=== PATIENT | male | born 1950 | race Caucasian/White ===

== ENCOUNTER 2017-07-09 16:54 | Observation (INO) ==
[2017-07-09] MEDS ORDERED: 0.9 % Sodium Chloride 1,000 ML IVC ONE (16:58)
[2017-07-09] MEDS ORDERED: 0.9 % Sodium Chloride 1,000 ML IVC SCH (17:00)
--- NOTE | 2017-07-09 17:01 | Emergency Department Note ---
Disposition Clinical Impression: Sepsis syndrome Hypotension Qualifiers: Hypotension type: other hypotension type Qualified Code(s): I95.89 - Other hypotension Leukocytosis Qualifiers: Leukocytosis type: other Qualified Code(s): D72.828 - Other elevated white blood cell count Disposition: Admitted As Inpatient Condition: Fair Referrals: Delonte Goodman DO [Primary Care Provider] - Forms: ED Satisfaction Letter Syncope HPI - General Chief Complaint: ED Dizziness Stated Complaint: low BP / vision changes Time Seen by Provider: 07/09/17 16:58 Source: patient, family, EMS Mode of arrival: EMS Limitations: no limitations Nursing Notes Reviewed: Yes Vital Signs Reviewed: Yes - History of Present Illness HPI Narrative: The patient relates he is sitting at home when he started feeling dizzy, sweaty and developed tunnel vision. They checked his blood pressure is 85/50 which is low for him. He denies associated chest pain or palpitation. He denies any new abdominal pain or cramping but has chronic discomfort in the left upper quadrant. Denies any increased cough or shortness of breath but states he has had a rattly cough for 3 months which she has been through 2 courses of antibiotics and the cough is actually better now than it has been. He denies any Lotrimin swelling, edema or pain. He denies urinary troubles. He denies any ill exposures. He is on chemotherapy for prostate cancer with the last treatment being a month ago. He came to have a radiation treatment just this past . It is reported that his prostate cancer is metastatic to the bone. On arrival to the emergency department he describes himself as "tired and cold" and that otherwise he "feels pretty decent". Pt Subjective Complaint: felt faint, almost passed out Onset (ago): Just [employer] Duration: second(s) Prodromal Symptoms: vision changes, lightheaded Context: at rest Injuries Sustained Associated with Event: none Current Symptoms: none History: other (Metastatic prostate cancer on chemotherapy and radiation treatment.) Treatments prior to arrival: none Associated trauma secondary to event: No - Related Data Home Medications Medication Instructions Recorded Confirmed Ergocalciferol (VITAMIN D2) 50,000 unit PO DAILY 03/13/17 06/26/17 [Drisdol (50,000 Unit)] Insulin Glargine,Hum.rec.anlog 11 unit SQ HS 03/13/17 06/26/17 [Lantus Solostar] Insulin LISPRO [Humalog Kwikpen 4 - 8 unit SQ TIDAC 03/13/17 06/26/17 U-100] Losartan Potassium [Cozaar] 100 mg PO DAILY 03/13/17 06/26/17 Lupron Depot 1 each IM [id number] 03/15/17 06/26/17 Previous Rx's Medication Instructions Recorded Dexamethasone [Decadron] 4 mg PO BID #60 tab 03/16/17 LORazepam [Ativan] 1 mg PO Q6H PRN #60 tablet 03/16/17 Lidocaine/Prilocaine [Emla] 1 appl TP AD #30 gm 03/16/17 Loratadine [Claritin] 10 mg PO DAILY PRN #30 tablet 03/16/17 Omeprazole [PriLOSEC] 20 mg PO DAILY #90 cap 03/16/17 Ondansetron [Zofran] 8 mg PO Q8HR PRN #90 tablet 03/16/17 Prochlorperazine Maleate 10 mg PO Q6HR PRN #90 tablet 03/16/17 [Compazine] Albuterol Sulfate [Albuterol 2 puff IH Q6H PRN #1 inhaler 04/26/17 Inhaler] Furosemide [Lasix] 20 mg PO DAILY PRN #30 tablet 05/18/17 Magic Mouthwash [Magic Mouthwash 10 ml PO QID PRN #240 ml 06/11/17 BLM] predniSONE [PredniSONE] 5 mg PO BIDWM #60 tablet 06/11/17 Allergies Allergy/AdvReac Type Severity Reaction Status Date / Time No Known Allergies Allergy Verified 06/26/17 11:39 All systems ED: reviewed and negative except as stated. Past Medical History - Past Medical History Attestation: Yes The following information was validated with the patient. Source: patient, old records reviewed, nursing notes reviewed Medical history: Reports: cancer (Prostate cancer with metastases), diabetes, malignancy Surgical history: Reports: herniorrhaphy, prostatectomy Psychiatric history: Reports: no psych history - Social History Smoking Status: Former smoker Smokeless Tobacco Status: No Alcohol use: Reports: none Drug use: Reports: none Physical Exam - General Limitations: no limitations General appearance: alert, in no apparent distress - Head Head exam: atraumatic, normocephalic, normal inspection - Eye Eye exam: Present: normal appearance, PERRL, EOMI. Absent: scleral icterus, conjunctival injection - ENT ENT exam: normal exam, normal oropharynx, mucous membranes moist - Neck Neck exam: Present: normal inspection, full ROM, trachea midline - Chest Chest inspection: Present: normal inspection, symmetric chest wall rise - Respiratory Respiratory exam: Present: normal lung sounds bilaterally. Absent: respiratory distress, wheezes, prolonged expiratory phase - Cardiovascular Cardiovascular exam: Present: regular rate, normal rhythm, normal heart sounds. Absent: tachycardia - Abdominal Exam Abdominal exam: Present: soft, normal bowel sounds. Absent: distention, guarding, rebound, rigidity Abdominal tenderness: Present: LUQ, mild - Extremities Exam Extremities exam: Present: normal inspection, full ROM, normal capillary refill. Absent: tenderness, pedal edema - Expanded Lower Extremity Exam Neurovascular/Tendon exam: Present: normal capillary refill. Absent: motor deficit, sensory deficit, tendon deficit Gait: observed and normal - Back Exam Back exam: Present: normal inspection, full ROM. Absent: tenderness, CVA tenderness (R), CVA tenderness (L), vertebral tenderness - Neurological Exam Neurological exam: Present: alert, oriented X3, CN II-XII intact. Absent: motor sensory deficit - Psychiatric Psychiatric exam: Present: normal affect, normal mood - Skin Skin exam: Present: warm, dry, intact, pallor. Absent: cyanosis, diaphoresis Course Course Narrative: 1804: All testing has been discussed with the patient and family. Given his hypotension, leukocytosis and elevated lactic acid level I believe continued IV fluids and instituting some IV antibiotics would be prudent. The patient and his are agreeable with this and I have placed a page to Dr. Paez to discuss antibiotic selection and orders for inpatient care. 1819: Has been discussed with Dr. Paez. Verbal orders have been obtained for this patient's observation. Vital Signs Temperature 97.6 F 07/09/17 16:57 Pulse Rate 99 07/09/17 16:57 Respiratory Rate 18 07/09/17 16:57 Blood Pressure 163/92 07/09/17 16:57 O2 Sat by Pulse Oximetry 99 07/09/17 16:57 Temperature 97.4 F L 07/09/17 17:05 Pulse Rate 105 07/09/17 18:22 Respiratory Rate 18 07/09/17 18:22 Blood Pressure 130/78 07/09/17 18:22 O2 Sat by Pulse Oximetry 96 07/09/17 18:22 Oxygen Delivery Oxygen Delivery Room Air Syncope - Differential Diagnosis Likely: syncope due to orthostatic hypotension, vasovagal syncope - Lab Data Lab results reviewed: Yes I reviewed the patient's lab results. Result diagrams: 07/09/17 17:20 07/09/17 17:20 Lab Results 07/09/17 07/09/17 07/09/17 Range/Units 17:20 17:20 17:20 WBC 19.2 H (4.3-11.1) K/mcL RBC 3.76 L (4.19-5.50) M/mcL Hgb 11.8 L (12.9-16.9) g/dL Hct 34.8 L (37.5-50.1) % MCV 92.6 (83.0-100.0) fL MCH 31.4 (28.0-33.3) pg MCHC 33.9 (31.6-35.5) g/dL RDW 15.6 H (11.5-14.5) % Plt Count 169 (140-400) K/mcL MPV 9.6 (9.4-12.4) fL Immature Gran % 0.7 (0-4) % Seg Neutrophils % 91.5 % Lymphocytes % 2.9 % Monocytes % 3.4 % Eosinophils % 1.1 % Basophils % 0.4 % Neutrophils # 17.6 H (1.6-8.9) K/mcL Lymphocytes # 0.6 (0.6-4.6) K/mcL Monocytes # 0.7 (0.0-1.3) K/mcL Eosinophils # 0.2 (0.0-0.6) K/mcL Basophils # 0.1 (0.0-0.2) K/mcL PT 11.1 (9.4-12.1) Seconds INR 1.0 VBG Lactic Acid (0.5-2.2) mmol/L Sodium 132 L (136-145) mEq/L Potassium 3.9 (3.5-4.5) mEq/L Chloride 95 L (98-109) mEq/L Carbon Dioxide 23 (19-29) mEq/L BUN 7 L (8-26) mg/dL Creatinine 0.86 (0.72-1.25) mg/dL Est GFR ( Amer) > 60 (> 60) Est GFR (Non-Af Amer) > 60 (> 60) BUN/Creatinine Ratio 8 (6-26) Glucose 155 H (70-99) mg/dL Calculated Osmolality 275 L (280-300) Calcium 10.8 (8.6-10.8) mg/dL Total Bilirubin 1.0 (0.2-1.2) mg/dL AST 27 (5-34) Units/L ALT 28 (0-55) Units/L Alkaline Phosphatase 120 (38-126) Units/L Troponin I (0-0.03) ng/mL Serum Total Protein 6.5 (6.0-8.3) g/dL Albumin 3.7 (3.5-5.0) g/dL Globulin 2.8 (2.4-3.5) g/dL Albumin/Globulin Ratio 1.3 (1.1-2.2) Urine Color (Yellow) Urine Clarity (Clear) Urine pH (5.0-8.0) pH Units Ur Specific [place] (1.010-1.025) Urine Protein (Neg-Trace) mg/dL Urine Glucose (UA) (Normal) mg/dL Urine Ketones (Negative) mg/dL Urine Blood (Negative) Urine Nitrite (Negative) Urine Bilirubin (Negative) Urine Urobilinogen (Normal) mg/dL Ur Leukocyte Esterase (Negative) Urine Microscopic RBC (0-3) per hpf Urine Microscopic WBC (0-3) per hpf Ur Squamous Epith Cells (None-Few) per lpf Urine Bacteria (None-Few) per hpf Hyaline Casts (None-Few) per lpf Granular Casts (None Seen) per lpf WBC Casts (None Seen) per lpf Ur Culture Indicated? (NO) 07/09/17 07/09/17 07/09/17 Range/Units 17:20 17:20 17:35 WBC (4.3-11.1) K/mcL RBC (4.19-5.50) M/mcL Hgb (12.9-16.9) g/dL Hct (37.5-50.1) % MCV (83.0-100.0) fL MCH (28.0-33.3) pg MCHC (31.6-35.5) g/dL RDW (11.5-14.5) % Plt Count (140-400) K/mcL MPV (9.4-12.4) fL Immature Gran % (0-4) % Seg Neutrophils % % Lymphocytes % % Monocytes % % Eosinophils % % Basophils % % Neutrophils # (1.6-8.9) K/mcL Lymphocytes # (0.6-4.6) K/mcL Monocytes # (0.0-1.3) K/mcL Eosinophils # (0.0-0.6) K/mcL Basophils # (0.0-0.2) K/mcL PT (9.4-12.1) Seconds INR VBG Lactic Acid 3.6 H (0.5-2.2) mmol/L Sodium (136-145) mEq/L Potassium (3.5-4.5) mEq/L Chloride (98-109) mEq/L Carbon Dioxide (19-29) mEq/L BUN (8-26) mg/dL Creatinine (0.72-1.25) mg/dL Est GFR ( Amer) (> 60) Est GFR (Non-Af Amer) (> 60) BUN/Creatinine Ratio (6-26) Glucose (70-99) mg/dL Calculated Osmolality (280-300) Calcium (8.6-10.8) mg/dL Total Bilirubin (0.2-1.2) mg/dL AST (5-34) Units/L ALT (0-55) Units/L Alkaline Phosphatase (38-126) Units/L Troponin I 0.00 (0-0.03) ng/mL Serum Total Protein (6.0-8.3) g/dL Albumin (3.5-5.0) g/dL Globulin (2.4-3.5) g/dL Albumin/Globulin Ratio (1.1-2.2) Urine Color Yellow (Yellow) Urine Clarity Clear (Clear) Urine pH 7.5 (5.0-8.0) pH Units Ur Specific [place] 1.025 (1.010-1.025) Urine Protein 100 H (Neg-Trace) mg/dL Urine Glucose (UA) 100 H (Normal) mg/dL Urine Ketones Trace H (Negative) mg/dL Urine Blood Small H (Negative) Urine Nitrite Negative (Negative) Urine Bilirubin Negative (Negative) Urine Urobilinogen Normal (Normal) mg/dL Ur Leukocyte Esterase Negative (Negative) Urine Microscopic RBC 3-5 H (0-3) per hpf Urine Microscopic WBC 5-15 H (0-3) per hpf Ur Squamous Epith Cells Moderate H (None-Few) per lpf Urine Bacteria Moderate H (None-Few) per hpf Hyaline Casts Many H (None-Few) per lpf Granular Casts Many H (None Seen) per lpf WBC Casts Few H (None Seen) per lpf Ur Culture Indicated? YES A (NO) - Radiology Data Radiology results reviewed: Yes I reviewed the patient's radiology results. Single view chest x-ray is performed. This does not demonstrate evidence for infiltrate, effusion, pneumothorax, foreign body or heart failure. The cardiac silhouette is normal. I do not see abnormality to the osseous structures of the chest. This is on my interpretation. Impressions Chest X-Ray 07/09/17 16:58 IMPRESSION: Stable portable study. D/ / Macy Doty Cha, MD / Macy Doty Cha, MD Interpreting Provider: Macy Doty Cha, MD - EKG Data EKG attestation: Yes I reviewed and interpreted this EKG. EKG shows normal: sinus rhythm, axis, intervals, QRS complexes, ST-T waves Rate: normal Interpretation: no acute changes, other (Baseline artifact.)
[2017-07-09 17:34] LABS: Basophils # 0.1 K/mcL (0.0-0.2); Basophils % 0.4 %; Eosinophils # 0.2 K/mcL (0.0-0.6); Eosinophils % 1.1 %; Hematocrit 34.8 % (37.5-50.1); Hemoglobin 11.8 g/dL (12.9-16.9); Immature Granulocytes % 0.7 % (0-4); Lymphocytes # 0.6 K/mcL (0.6-4.6); Lymphocytes % 2.9 %; Mean Corpuscular HGB Conc 33.9 g/dL (31.6-35.5); Mean Corpuscular Hemoglobin 31.4 pg (28.0-33.3); Mean Corpuscular Volume 92.6 fL (83.0-100.0); Mean Platelet Volume 9.6 fL (9.4-12.4); Monocytes # 0.7 K/mcL (0.0-1.3); Monocytes % 3.4 %; Platelet Count 169 K/mcL (140-400); Red Blood Count 3.76 M/mcL (4.19-5.50); Red Cell Distribution Width 15.6 % (11.5-14.5); Segmented Neutrophils % 91.5 %
[2017-07-09 17:38] LABS: Neutrophils # 17.6 K/mcL (1.6-8.9)
[2017-07-09 17:41] LABS: Prothrombin Time 11.1 Seconds (9.4-12.1)
[2017-07-09 17:46] LABS: Bilirubin,Urine Negative (Negative); Blood,Urine Small (Negative); Clarity,Urine Clear (Clear); Color,Urine Yellow (Yellow); Glucose,Urine (UA) 100 mg/dL (Normal); Ketones,Urine Trace mg/dL (Negative); Leukocyte Esterase,Urine Negative (Negative); Nitrite,Urine Negative (Negative); PH,Urine 7.5 pH Units (5.0-8.0); Protein,Urine 100 mg/dL (Neg-Trace); Specific Gravity,Urine 1.025 (1.010-1.025); Urobilinogen,Urine Normal (Normal)
[2017-07-09 17:51] LABS: Alanine Aminotransferase 28 Units/L (0-55); Albumin 3.7 g/dL (3.5-5.0); Albumin/Globulin Ratio 1.3 (1.1-2.2); Alkaline Phosphatase 120 Units/L (38-126); Aspartate Amino Transferase 27 Units/L (5-34); BUN/Creatinine Ratio 8 (6-26); Blood Urea Nitrogen 7 mg/dL (8-26); Calcium 10.8 mg/dL (8.6-10.8); Carbon Dioxide 23 mEq/L (19-29); Chloride 95 mEq/L (98-109); Globulin 2.8 g/dL (2.4-3.5); Glucose 155 mg/dL (70-99); Osmolality,Calculated 275 (280-300); Potassium 3.9 mEq/L (3.5-4.5); Sodium 132 mEq/L (136-145); Total Protein 6.5 g/dL (6.0-8.3); eGFR For African Americans > 60 (> 60); eGFR For Non-African Americans > 60 (> 60)
[2017-07-09 18:06] LABS: Granular Casts,Urine Many per lpf (None Seen); Hyaline Casts,Urine Many per lpf (None-Few)
[2017-07-09 18:07] LABS: White Blood Cell Casts,Urine Few per lpf (None Seen)
[2017-07-09 18:08] LABS: Squamous Epithelial Cell,Urine Moderate per lpf (None-Few)
[2017-07-09 18:09] LABS: Bacteria,Urine Moderate per hpf (None-Few)
[2017-07-09] MEDS ORDERED: Piperacillin/Tazobactam 3.375 GM in D5% in Water (Mini-Bag+) 100 ML IVPB ONE (18:11)
[2017-07-09] MEDS ORDERED: Dextrose Gel 15 GM PO PRN ×4 (18:31→19:54)
[2017-07-09] MEDS ORDERED: D5% in Water 1,000 ML IVC PRN ×2 (18:31→19:54)
[2017-07-09] MEDS ORDERED: *HR* Dextrose 50 % in Water (Syg) 50 ML SYRINGE IVP PRN ×2 (18:31→19:54)
[2017-07-09] MEDS ORDERED: MOM Conc 10 ML UD.LIQ PO PRN (19:54)
[2017-07-09] MEDS ORDERED: Acetaminophen 325 MG TABLET PO PRN (19:54)
[2017-07-09] MEDS ORDERED: Ondansetron 4 MG/2 ML VIAL IVP PRN (19:54)
[2017-07-09] MEDS ORDERED: Naloxone 0.4 MG/ML INJ IVP PRN (19:54)
[2017-07-09] MEDS ORDERED: Insulin LISPRO 300 UNITS/3 ML VIAL SQ SCH (21:00)
[2017-07-09] MEDS: 0.9 % Sodium Chloride 1,000 ML IVC SCH (21:41)
[2017-07-10] MEDS: Piperacillin/Tazobactam 3.375 GM in D5% in Water (Mini-Bag+) 100 ML IVPB SCH ×2 (01:47→08:44)
[2017-07-10] MEDS: 0.9 % Sodium Chloride 1,000 ML IVC SCH (03:20)
[2017-07-10 05:00] LABS: Basophils % 0.6 %; Eosinophils # 0.5 K/mcL (0.0-0.6); Eosinophils % 6.7 %; Hematocrit 30.2 % (37.5-50.1); Hemoglobin 10.2 g/dL (12.9-16.9); Immature Granulocytes % 0.4 % (0-4); Lymphocytes % 14.5 %; Mean Corpuscular HGB Conc 33.8 g/dL (31.6-35.5); Mean Corpuscular Hemoglobin 30.5 pg (28.0-33.3); Mean Corpuscular Volume 90.4 fL (83.0-100.0); Mean Platelet Volume 9.3 fL (9.4-12.4); Monocytes # 0.7 K/mcL (0.0-1.3); Monocytes % 9.8 %; Neutrophils # 4.6 K/mcL (1.6-8.9); Platelet Count 109 K/mcL (140-400); Red Blood Count 3.34 M/mcL (4.19-5.50); Red Cell Distribution Width 15.8 % (11.5-14.5)
[2017-07-10 05:18] LABS: BUN/Creatinine Ratio 9 (6-26); Blood Urea Nitrogen 7 mg/dL (8-26); Calcium 8.9 mg/dL (8.6-10.8); Carbon Dioxide 23 mEq/L (19-29); Chloride 101 mEq/L (98-109); Glucose 101 mg/dL (70-99); Osmolality,Calculated 274 (280-300); Potassium 3.9 mEq/L (3.5-4.5); Sodium 133 mEq/L (136-145); eGFR For African Americans > 60 (> 60); eGFR For Non-African Americans > 60 (> 60)
[2017-07-10] MEDS ORDERED: Insulin LISPRO 300 UNITS/3 ML VIAL SQ SCH (07:30)
[2017-07-10] MEDS: Insulin LISPRO 300 UNITS/3 ML VIAL SQ SCH ×2 (07:36→11:42)
--- NOTE | 2017-07-10 11:19 | Internal Med History&Physical ---
Date of Encounter: 07/10/17 Time of Encounter: 10:45 Assessment and Plan (1) Sepsis syndrome Current visit: Yes Status: Acute He was admitted to observation status and given Zosyn. Follow-up labs were ordered. (2) Anemia Current visit: Yes Status: Acute Suspect multifactorial origin including treatment for prostate cancer. Qualifiers: Anemia type: unspecified type Qualified Code(s): D64.9 - Anemia, unspecified Internal Medicine - H&P: HPI Chief complaint: Hypotension Admitted From: Home Plans for Post Hospital Care: Home History of present illness: Mr. Jackson is a 67 year old male who came to emergency room after he developed sensation of weakness and near-syncope at home. Blood pressure was found to be approximately 85/50. He came to emergency room and was evaluated and felt to have sepsis with leukocytosis and left shift. The source was felt to be urinary. He was admitted to [facility] floor for ongoing care needs. He states he feels back to his baseline now. He has ambulated in the room without difficulty. He denies pain or dyspnea and wishes to be discharged home. Past Med Surg Social Fam HX - Past Medical History Medical history: cancer, diabetes, malignancy Psychiatric history: no psych history - Past Surgical History Surgical History: herniorrhaphy, prostatectomy - Social History Smoking Status: Former smoker Smokeless Tobacco Status: No Alcohol use: none Drug use: none Internal Medicine - H&P: Meds Ergocalciferol (VITAMIN D2) [Drisdol (50,000 Unit)] 50,000 unit PO DAILY [History] Insulin Glargine,Hum.rec.anlog [Lantus Solostar] 14 unit SQ DAILY 03/13/17 [ History] Insulin LISPRO [Humalog Kwikpen U-100] 4 - 8 unit SQ TIDAC 03/13/17 [History] Losartan Potassium [Cozaar] 100 mg PO DAILY 03/13/17 [History] Lupron Depot 1 each IM [id number] 03/15/17 [History] Dexamethasone [Decadron] 4 mg PO BID #60 tab 03/16/17 [Rx] LORazepam [Ativan] 1 mg PO Q6H PRN #60 tablet 03/16/17 [Rx] Lidocaine/Prilocaine [Emla] 1 appl TP AD #30 gm 03/16/17 [Rx] Loratadine [Claritin] 10 mg PO DAILY PRN #30 tablet 03/16/17 [Rx] Omeprazole [PriLOSEC] 20 mg PO DAILY #90 cap 03/16/17 [Rx] Ondansetron [Zofran] 8 mg PO Q8HR PRN #90 tablet 03/16/17 [Rx] Prochlorperazine Maleate [Compazine] 10 mg PO Q6HR PRN #90 tablet 03/16/17 [Rx] Albuterol Sulfate [Albuterol Inhaler] 2 puff IH Q6H PRN #1 inhaler 04/26/17 [Rx] Furosemide [Lasix] 20 mg PO DAILY PRN #30 tablet 05/18/17 [Rx] Magic Mouthwash [Magic Mouthwash BLM] 10 ml PO QID PRN #240 ml 06/11/17 [Rx] predniSONE [PredniSONE] 5 mg PO BIDWM #60 tablet 06/11/17 [Rx] 3 Allergy/AdvReac Type Severity Reaction Status Date / Time No Known Allergies Allergy Verified 06/26/17 11:39 All Systems PM: A 10-system review of systems was performed and is negative for pertinent findings except as documented above in the HPI. Review of systems: Gen.: He states his weight has decreased approximately 23 pounds in the past year. Some of this was intentional and some has been due to poor oral intake due to mucositis from chemotherapy Cardiovascular: He denies hypertension ID heart failure angina DVT or pulmonary embolus Respiratory: He smoked from age [age] up to 2 packs per day. He occasionally gets dyspnea on exertion. He does not use home oxygen. GI: He had pancreatic duct surgery several years ago. Denies other disorders of his liver gallbladder or exocrine pancreas : He was diagnosed with prostate cancer October 2010 and follows at the [facility]. It is stage IV now with metastasis to bone. He denies other kidney or bladder disorders. Neurologic: He denies large distribution strokes or seizures. Endocrine: He was diagnosed with DM 2 approximately 2007. He denies diabetes or thyroid disease Hematology/oncology: He has anemia but denies other blood disorders. He had prostate cancer diagnosed as per above. Psychiatric: He denies anxiety depression other mental health issues Musculoskeletal: He has diagnosis of gout but denies significant arthritis or other bone joint or muscle disorders. - Constitutional Vitals: Temp Pulse Resp BP Pulse Ox 97.9 F 69 16 143/84 94 07/10/17 07:14 07/10/17 07:14 07/10/17 07:14 07/10/17 07:14 07/10/17 07:14 Exam: Gen.: He is a well-developed well-nourished male who appears in no severe distress at present time. She denies pain or dyspnea. HEENT: Head is atraumatic and normocephalic. Eyes: EOMI. There is no scleral icterus. Mouth: Mucosa is moist. Neck: Supple and nontender. There is no thyromegaly or adenopathy noted. Heart: Regular without murmurs gallops or ectopics Lungs: No wheezes or crackles are heard. Abdomen: Soft and nontender. No masses or guarding are noted. Extremities: He is wearing BINA hose bilaterally which I did not remove. There is no significant edema of his lower legs palpated through the BINA hose. Neurologic: Mental status: He is talkative and a good historian. Cranial nerves : Smile is symmetric. Forehead wrinkles bilaterally. Tongue protrudes midline. EOMI. Motor: There is no pronator drift. Cerebellar: Finger to nose is intact bilaterally. Skin: Warm and dry Internal Med - H&P Results - Labs CBC & Chem 7: 07/10/17 04:40 07/10/17 04:40 Labs: Short CBC 07/10/17 Range/Units 04:40 WBC 6.8 D (4.3-11.1) K/mcL Hgb 10.2 L D (12.9-16.9) g/dL Hct 30.2 L (37.5-50.1) % Plt Count 109 L (140-400) K/mcL Neutrophils # 4.6 (1.6-8.9) K/mcL BMP 07/10/17 04:40 Sodium 133 L Potassium 3.9 Chloride 101 Carbon Dioxide 23 BUN 7 L Creatinine 0.78 Glucose 101 H Calcium 8.9 D
--- NOTE | 2017-07-10 11:30 | Discharge Summary ---
Date of Encounter: 07/10/17 Time of Encounter: 10:45 - Discharge Diagnosis (1) Sepsis syndrome Priority: Primary Status: Acute (2) Anemia Priority: Secondary Status: Chronic Qualifiers: Anemia type: unspecified type Qualified Code(s): D64.9 - Anemia, unspecified - Discharge Medications Prescriptions: Amoxicillin/Clavulanate [Augmentin] 875 mg PO BIDWM #10 tablet Lactobacillus [Culturelle] 1 each PO BID #10 cap.sprink Home Medications: Ergocalciferol (VITAMIN D2) [Drisdol (50,000 Unit)] 50,000 unit PO DAILY [History] Insulin Glargine,Hum.rec.anlog [Lantus Solostar] 14 unit SQ DAILY 03/13/17 [ History] Insulin LISPRO [Humalog Kwikpen U-100] 4 - 8 unit SQ TIDAC 03/13/17 [History] Losartan Potassium [Cozaar] 100 mg PO DAILY 03/13/17 [History] Lupron Depot 1 each IM [id number] 03/15/17 [History] Dexamethasone [Decadron] 4 mg PO BID #60 tab 03/16/17 [Rx] LORazepam [Ativan] 1 mg PO Q6H PRN #60 tablet 03/16/17 [Rx] Lidocaine/Prilocaine [Emla] 1 appl TP AD #30 gm 03/16/17 [Rx] Loratadine [Claritin] 10 mg PO DAILY PRN #30 tablet 03/16/17 [Rx] Omeprazole [PriLOSEC] 20 mg PO DAILY #90 cap 03/16/17 [Rx] Ondansetron [Zofran] 8 mg PO Q8HR PRN #90 tablet 03/16/17 [Rx] Prochlorperazine Maleate [Compazine] 10 mg PO Q6HR PRN #90 tablet 03/16/17 [Rx] Albuterol Sulfate [Albuterol Inhaler] 2 puff IH Q6H PRN #1 inhaler 04/26/17 [Rx] Furosemide [Lasix] 20 mg PO DAILY PRN #30 tablet 05/18/17 [Rx] Magic Mouthwash [Magic Mouthwash BLM] 10 ml PO QID PRN #240 ml 06/11/17 [Rx] predniSONE [PredniSONE] 5 mg PO BIDWM #60 tablet 06/11/17 [Rx] Amoxicillin/Clavulanate [Augmentin] 875 mg PO BIDWM #10 tablet 07/10/17 [Rx] Lactobacillus [Culturelle] 1 each PO BID #10 cap.sprink 07/10/17 [Rx] Allergies/Adverse Reactions: 3 Allergy/AdvReac Type Severity Reaction Status Date / Time No Known Allergies Allergy Verified 06/26/17 11:39 Date of admission: 07/09/17 18:44 Primary care physician: Delonte Goodman DO - Patient Status Disposition: Home Health Service Condition: Fair Functional capacity at discharge: independent ambulation Overall status at discharge: patient is progressing back to baseline - Discharge Instructions Follow Up With: Delonte Goodman DO [Primary Care Provider] - 1 week - Diet and Activity Activity: resume usual activities as tolerated Diet: advance to your usual diet Hospital course: Mr. Jackson is a 67 year old male who came to emergency room after he developed sensation of weakness and near-syncope at home. Blood pressure was found to be approximately 85/50. He came to emergency room and was evaluated and felt to have sepsis with leukocytosis and left shift. The source was felt to be urinary. He was admitted to [facility] for ongoing care needs. Initial orders were written by the emergency room physician. I saw him on July 10 and performed the history and physical. He was started on IV Zosyn through emergency room. Repeat CBC on July 10 showed WBC normalized to 6.8 with resolution of the left shift. He remained afebrile during his hospital stay. His blood pressure remained normal throughout his hospital stay. When I saw him he wished to be discharged home which I felt was reasonable. He will continue with antibiotic and probiotic for 5 additional days at discharge. He will follow with his PCP Dr. Delonte Goodman within 1 week. He will follow with his medical oncologist as directed. - Time Spent with Patient Total time spent providing and/or coordinating discharge services: - Constitutional Vitals: Temp Pulse Resp BP Pulse Ox 97.9 F 69 16 143/84 94 07/10/17 07:14 07/10/17 07:14 07/10/17 07:14 07/10/17 07:14 07/10/17 07:14
[2017-07-10 11:32] VITALS: BP 148/88
--- NOTE | 2017-07-10 14:23 | Electrocardiograph Report ---
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
== END 2017-07-10 14:23 | disposition home or self-care (01) ==
LOC: EMEROOPIK 16:54 → INPPIK 16:54
PROVIDERS: ADMIT Emergency Medicine; ATTEND Internal Medicine

== ENCOUNTER 2018-12-24 21:47 | Inpatient (IN) ==
[2018-12-24] MEDS ORDERED: Lidocaine Viscous Oral Soln 15 ML SOLUTION PO PRN (22:37)
[2018-12-24] MEDS ORDERED: Ondansetron ODT 4 MG TAB.RAPDIS SL PRN (22:40)
[2018-12-24] MEDS ORDERED: *HR* HYDROcodone/Acet 10/325 mg TABLET PO PRN (22:50)
[2018-12-24] MEDS ORDERED: Acetaminophen 325 MG TABLET PO PRN (23:05)
[2018-12-24] MEDS: Morphine Sulfate Oral CONC 10 MG/0.5 ML ORAL.SYG SL PRN (23:23)
[2018-12-25] MEDS: *HR* LORazepam Oral Conc 2 MG/ML SL PRN ×3 (02:08→19:42)
[2018-12-25] MEDS: Morphine Sulfate Oral CONC 10 MG/0.5 ML ORAL.SYG SL PRN ×3 (05:49→22:27)
[2018-12-25] MEDS ORDERED: Furosemide 40 MG TABLET PO SCH (08:00)
[2018-12-25] MEDS ORDERED: PrednisoLONE Oral Soln 15 MG/5 ML UDC PO SCH (09:00)
[2018-12-26] MEDS: Atropine 1% Opth Drops 100 DROP/5 ML BOTTLE SL PRN ×3 (01:06→10:43)
[2018-12-26 07:48] VITALS: BP 86/52
[2018-12-26] MEDS: Morphine Sulfate Oral CONC 10 MG/0.5 ML ORAL.SYG SL PRN ×3 (10:44→15:18)
== END 2018-12-26 17:30 | disposition expired ==
LOC: INPPIK 22:21
PROVIDERS: ADMIT Internal Medicine; ATTEND Internal Medicine